=== PATIENT | male | born 1990 | race Hispanic/Latino ===

== ENCOUNTER 2020-03-14 10:07 | Outpatient (CLI) | payer SELFPAY ==
--- NOTE | ~2020-03-14 | CT_ITS ---
EXAMINATION: CT abdomen pelvis w con INDICATION: Right lower quadrant pain TECHNIQUE: Computed tomographic images of the abdomen and pelvis were obtained after the administrati on of 100 cc of Omnipaque 350 intravenous contrast. The dose-length product (DLP) was 663.31 mGy-cm. Automated exposure control and iterative reconstruction technique were employed. COMPARISON: None available FINDINGS: Minimal dependent atelectasis is present in the lung bases. The heart size is normal. The l iver, spleen, pancreas, gallbladder, and adrenal glands are normal. The kidneys are unremarkable. No pathologically enlarged abdominal or pelvic lymph nodes are identified. There is no free intraperiton eal gas or evidence of bowel obstruction. The appendix is normal. There is a tiny umbilical hernia co ntaining fat. IMPRESSION: 1. No CT correlate for the patient's symptoms. Reviewed, dictated and finalized at location B.
== END 2020-03-14 10:08 ==
PROVIDERS: Visit Provider Registered Nurse
DX: R10.31 Right lower quadrant pain (principal)
CPT/HCPCS: 74177; Q9967

== ENCOUNTER 2020-07-10 18:36 | Emergency (ER) | payer OTHER, SELFPAY ==
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
[2020-07-10 18:38] VITALS: BP 137/69; PULSE 87; RESP 18; TEMP 37.4; O2SAT 97
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
[2020-07-10 20:50] VITALS: BP 142/78; PULSE 80; RESP 18; O2SAT 98
== END 2020-07-10 20:52 | disposition home or self-care (01) ==
PROVIDERS: Emergency Provider Family Medicine
DX: S29.012A Strain of muscle and tendon of back wall of thorax, initial encounter (principal); V49.50XA Passenger injured in collision with unspecified motor vehicles in traffic accident, initial encounter
CPT/HCPCS: 71046; 99283

== ENCOUNTER 2020-07-27 00:12 | Emergency (ER) | payer OTHER, SELFPAY ==
--- NOTE | ~2020-07-27 | CT_ITS ---
EXAMINATION: CT abdomen pelvis w con DATE: 07/27/2020 01:36 INDICATION: Epigastric abdominal pain. Abnormal liver function tests. TECHNIQUE: Computed tomography (CT) of the abdomen and pelvis was performed with 100 mL Omnipaque 350 intravenous contrast. Automated exposure control and iterative reconstruction technique were employe d. The dose-length product was 519.00 mGy-cm. COMPARISON: CT abdomen and pelvis 03/14/2020 FINDINGS: The visualized portions of the lung bases demonstrate mild atelectasis. No pleural effusion . The heart size is normal. No pericardial effusion. There is diffuse hepatic steatosis. The gallblad rosa maria is contracted. The spleen, pancreas, adrenal glands, and kidneys are normal. There are no dilated loops of bowel. The appendix is normal. There are no pathologically enlarged lymph nodes. There is n o free intraperitoneal fluid. There is mild lumbar spondylosis. IMPRESSION: 1. Diffuse hepatic steatosis. Reviewed, dictated and finalized at location A. [employer] PRODUCER
--- NOTE | ~2020-07-27 | XR_ITS ---
EXAMINATION: XR chest 1V portable DATE: 07/27/2020 00:46 INDICATION: Chest pain. TECHNIQUE: A single frontal view of the chest was obtained. COMPARISON: Chest 2 views 07/10/2020, CT abdomen and pelvis 07/27/2020 FINDINGS: There is mild atelectasis in the lower lung zones. No pleural effusion or pneumothorax. The heart size is normal. IMPRESSION: 1. Mild atelectasis in the lower lung zones. Reviewed, dictated and finalized at location A. TE CLERK FOR [employer]
[2020-07-27 00:15] VITALS: BP 143/85; PULSE 91; RESP 20; TEMP 36.8; O2SAT 100
--- NOTE | 2020-07-27 00:23 | ECG_ITS ---
Measurements Intervals [place] Rate: 91 P: 57 OR: 140 QRS: 63 QRSD: 92 T: 39 QT: 362 QTc: 445 Interpretive Statements SINUS RHYTHM NORMAL ECG Electronically Signed On 07-27-2020 7:45:19 [employer] by Blayne Khanna D.O.
--- NOTE | 2020-07-27 00:25 | ED.GENADULT ---
HPI - General Adult General Chief complaint: Chest Pain Stated complaint: chest pain Time Seen by Provider: 07/27/20 00:18 History of Present Illness HPI narrative: Patient is a 29-year-old gentleman who presents emergency department with chief complaint of chest pain. The patient states for the last 6 months has been having discomfort in the left side of his chest states it is both a pressure sensation and also sharp. Patient reports that is not improved by anything nor is it worsened by anything. Patient decided tonight to come to the emergency department reports he also has history of a GI problem that is being worked up. Patient denies fever denies cough denies chest trauma. Related Data Home Medications Medication Instructions Recorded Confirmed No Home Medications 07/27/20 07/27/20 Allergies Allergy/AdvReac Type Severity Reaction Status Date / Time No Known Allergies Allergy Verified 07/27/20 00:21 Review of Systems Review of Systems: Narrative: A 10 system review of systems was completed on the patient and is negative except for what is stated in the HPI. Nursing and ancillary documentation was reviewed. PMFSH Comments Patient reports history of a GI issue that is being worked up but does not have an official diagnosis yet Social history patient denies smoking or illicit drug use Exam Narrative: Exam Narrative: GENERAL: Well-appearing, well-nourished, and in no acute distress. HEAD: Normocephalic, atraumatic. EYES: PERRLA and EOMI. ENT: Nares clear, no rhinorrhea or epistaxis. Mucous membranes moist. NECK: Supple. CHEST: Clear to auscultation. No respiratory distress. HEART: Regular rate and rhythm. No murmur heard. Normal peripheral pulses. ABDOMEN: Soft, nontender, nondistended, normal active bowel sounds. EXTREMITIES: Normal range of motion. No edema. SKIN: Warm, dry, no rash. NEURO: No focal deficits. Alert and oriented x3. PSYCH: Normal mood and affect. Course Course Emergency Course: EKG shows sinus rhythm rate of [address] elevation or ST depression Patient's initial troponin was negative. Patient had some mild elevation in his liver transaminases a CT scan of the abdomen pelvis was obtained which showed no evidence of acute intra-abdominal pathology. Vital Signs Vital signs: Vital Signs Temperature 36.8 C 07/27/20 00:15 Pulse Rate 91 07/27/20 00:15 Respiratory Rate 20 07/27/20 00:15 Blood Pressure 143/85 H 07/27/20 00:15 Pulse Oximetry 100 07/27/20 00:15 Temperature 36.8 C 07/27/20 00:15 Pulse Rate 72 07/27/20 01:17 Respiratory Rate 17 07/27/20 01:17 Blood Pressure 123/62 07/27/20 01:17 Pulse Oximetry 97 07/27/20 01:17 Medical Decision Making Vital Signs Vital Signs: Vital Signs Temperature 36.8 C 07/27/20 00:15 Pulse Rate 91 07/27/20 00:15 Respiratory Rate 20 07/27/20 00:15 Blood Pressure 143/85 H 07/27/20 00:15 Pulse Oximetry 100 07/27/20 00:15 Temperature 36.8 C 07/27/20 00:15 Pulse Rate 72 07/27/20 01:17 Respiratory Rate 17 07/27/20 01:17 Blood Pressure 123/62 07/27/20 01:17 Pulse Oximetry 97 07/27/20 01:17 Lab Data Result diagrams: 07/27/20 00:31 07/27/20 00:31 Labs: Lab Results 07/27/20 07/27/20 07/27/20 Range/Units 00:31 00:31 00:31 WBC 15.0 H (4.5-10.0) K/mm3 RBC 4.88 (4.6-6.20) M/mm3 Hgb 15.4 (14.0-18.0) g/dL Hct 44.3 (42.0-52.0) % MCV 90.8 (80-100) fl MCH 31.6 (26-34) pg MCHC 34.8 (32-36) g/dl RDW 12.6 (11.5-14.5) % Plt Count 341 (150-375) k/mm3 MPV 9.4 (7.4-10.4) fl Immature Gran % (Auto) 0.4 (0-0.5) % Neut % (Auto) 53.1 (45.5-73.1) % Lymph % (Auto) 34.4 (18.3-44.2) % Moca % (Auto) 7.1 (2.6-8.5) % Eos % (Auto) 4.3 (0-4.4) % Baso % (Auto) 0.7 (0.2-1.2) % Lymph # (Auto) 5.15 H (0.9-3.2) K/mm3 Moca # (Auto) 1.1 H (0.1-0.6) K/mm3 Eos # (Auto) 0.7 H (0
[2020-07-27] MEDS: ASPIRIN 81 MG CHEWABLE TABLET 324 MG PO (00:32)
[2020-07-27] MEDS: KETOROLAC 30 MG/ML VIAL (*BKC) IV PUSH (00:32)
[2020-07-27 00:49] LABS: Basophils Absolute Auto 0.1 K/mm3 (0.0-0.1); Basophils Percent Auto 0.7 % (0.2-1.2); Eosinophils Absolute Auto 0.7 K/mm3 (0-0.3); Eosinophils Percent Auto 4.3 % (0-4.4); Hematocrit 44.3 % (42.0-52.0); Hemoglobin 15.4 g/dL (14.0-18.0); Immature Granulocyte Absolute 0.06 K/mm3 (0.00-0.031); Immature Granulocyte Percent A 0.4 % (0-0.5); Lymphocytes Absolute Auto 5.15 K/mm3 (0.9-3.2); Lymphocytes Percent Auto 34.4 % (18.3-44.2); Mean Corpuscular HGB Conc 34.8 g/dl (32-36); Mean Corpuscular Hemoglobin 31.6 pg (26-34); Mean Corpuscular Volume 90.8 fl (80-100); Mean Platelet Volume 9.4 fl (7.4-10.4); Monocytes Absolute Auto 1.1 K/mm3 (0.1-0.6); Monocytes Percent Auto 7.1 % (2.6-8.5); Neutrophils Absolute Auto 7.9 K/mm3 (1.3-6.7); Neutrophils Percent Auto 53.1 % (45.5-73.1); Platelet Count Result 341 k/mm3 (150-375); Red Blood Count 4.88 M/mm3 (4.6-6.20); Red Cell Distribution Width 12.6 % (11.5-14.5)
[2020-07-27 01:05] LABS: Alanine Aminotransferase 119 U/L (4-50); Albumin Level 4.8 g/dL (3.5-5.1); Alkaline Phosphatase 76 U/L (38-126); Anion Gap 11 mmol/L (8-16); Aspartate Amino Transferase 73 U/L (17-59); Bilirubin,Total 0.6 mg/dL (0.2-1.3); Blood Urea Nitrogen 17 mg/dL (9-20); Calcium 9.7 mg/dL (8.4-10.2); Carbon Dioxide 29 mmol/L (22-30); Chloride 99 mmol/L (98-107); Estimated CRCL calculation 131 ml/min; Estimated Glomerular Filt Rate > 60; Glucose 96 mg/dL (75-110); Lipase 92 U/L (23-300); Potassium 3.6 mmol/L (3.4-5.0); Sodium 139 mmol/L (137-145)
[2020-07-27 01:14] LABS: Troponin I < 0.012 ng/mL (0.000-0.034)
[2020-07-27 01:17] VITALS: BP 123/62; PULSE 72; RESP 17; O2SAT 97
[2020-07-27 02:25] VITALS: BP 109/58; PULSE 68; RESP 19; O2SAT 99
== END 2020-07-27 02:26 | disposition home or self-care (01) ==
PROVIDERS: Emergency Provider Emergency Medicine
DX: R07.89 Other chest pain (principal); R74.01 Elevation of levels of liver transaminase levels
CPT/HCPCS: 36415; 71045; 74177; 80053; 83690; 84484; 85025; 93005; 96374; 99284; A9270; J1885; Q9967